=== PATIENT | male | born 1985 | race Caucasian/White ===

== ENCOUNTER 2019-12-05 09:30 | Emergency (ER) | payer OTHER, SELFPAY ==
[2019-12-05 09:37] VITALS: BP 160/85; PULSE 80; RESP 17; TEMP 36.9; O2SAT 98; BMI 25.1
--- NOTE | 2019-12-05 09:51 | ED_ITS ---
HPI - URI/Sore Throat General Chief Complaint: Upper Respiratory Symptoms Stated Complaint: THROAT/ LINGERING COUGH Time Seen by Provider: 12/05/19 09:51 Source: patient Mode of arrival: Ambulatory Limitations: no limitations History of Present Illness HPI Narrative: 34-year-old otherwise healthy gentleman presents with cough that is worsening. He is a lifelong nonsmoker with no history of asthma or upper respiratory issues. He developed a mild viral-like syndrome approximately 5 weeks ago the majority of the symptoms resolved but he continued to have a dry irritating cough in the intervening 5 weeks. Yesterday he noticed that the cough was getting worse, slightly more productive and I developing a sore throat along with increasing myalgias. Denies nausea, vomiting, chest pain, edema, abdominal pain, orthopnea, headache. Related Data Previous Rx's Medication Instructions Recorded azithromycin See Rx Instructions .ROUTE 12/05/19 .COMPLEX #6 tab benzonatate [Tessalon Perles] 100 mg PO BID-TID PRN #20 cap 12/05/19 Allergies Allergy/AdvReac Type Severity Reaction Status Date / Time No Known Drug Allergies Allergy Unverified 04/22/18 09:10 Review of Systems Review of Systems Narrative: All systems reviewed and are unremarkable except as noted in HPI and below Patient History Medical History MRSA (methicillin resistant Staphylococcus aureus) (Resolved ~2009) Surgical History History of tonsillectomy (Resolved ~1990) [place] teeth extracted (Resolved ~2002) Family History Mother Cancer Grandfather Hypertension Heart disease Grandmother Cancer Hypertension Grandfather Hypertension Heart disease Grandmother Dementia Social History Smoking Status: Never smoker Smoking Status: Never smoker alcohol intake frequency: a few times a month Alcohol type: beer Substance Use Type: does not use Exam Narrative Exam Narrative: General: Healthy appearing, in no acute distress. Able to give a complete and coherent history. Well-nourished well-developed HEENT: Moist mucous membranes, normal sclera with reactive pupils, mildly erythematous posterior pharynx without exudate, tympanic membranes are completely normal Neck: No JVD, supple Respiratory: Lungs with rhonchi and consolidated findings in the right axilla and right posterior lung orantes without any wheeze. Full and symmetrical air movement Cardiac: Regular rate and rhythm no murmurs no bruits Abdomen: Soft nontender good bowel tones, no flank pain Skin: Warm and dry, no rashes Neurologic: Grossly neurologically intact with no obvious asymmetries or abnormalities Extremities: No trauma, well perfused Psych: Cooperative, appropriate insight and affect Initial Vital Signs Initial Vital Signs: Vital Signs Temperature 98.5 F 12/05/19 09:37 Pulse Rate 80 12/05/19 09:37 Respiratory Rate 17 12/05/19 09:37 Blood Pressure 160/85 H 12/05/19 09:37 Pulse Oximetry 98 12/05/19 09:37 Course Vital Signs Vital signs: Vital Signs - 8 hr 12/05/19 09:37 Temperature 98.5 F Pulse Rate 80 Respiratory Rate 17 Blood Pressure 160/85 H Pulse Oximetry 98 [facility] - URI/Sore Throat Medical Records Attestation: I reviewed the patient's medical records. [facility] Narrative Medical decision making narrative: Five weeks of cough with increased symptoms yesterday now with clinical signs and symptoms of a developing right lower lobe pneumonia without significant hypoxia or signs of sepsis. Safe for home discharge Discharge Plan Departure Patient Disposition: Home Clinical Impression: Pneumonia Qualifiers: Pneumonia type: due to unspecified organism Laterality: right Lung location: lower lobe of lung Qualified Code(s): J18.9 - Pneumonia, unspecified organism Instructions: DI for Pneumonia -- Adult Activity Restrictions/Additional Instructions: Thank you for coming in today From your history it sounds like you had a viral syndrome with a dry persistent cough that changed yesterday. I suspect that as you are getting over the viral syndrome bacteria have taken advantage of you and that is why you now have all the clinical signs of a right lower lobe pneumonia. I am going to treat you with a course of azithromycin, antibiotics for the pneumonia. I have also given you a prescription for Tessalon Perles to suppress the cough these prescriptions have been electronically sent to [facility] in [place]. For aches, fevers and pain please try 2 [id number] ibuprofen (400 mg) and 1 Tylenol. This combination has been shown to be more effective for overall pain control with lower doses of both medications than any other combinations. If you find that you are developing worsening fevers, worsening dyspnea or have new or other concerning symptoms please return to the emergency room for further evaluation. Under normal circumstances, you would be appropriate to return to work in 1-2 days. [place] current recommendation is for coming to work when you continue to have a cough. I hope you heal quickly Prescriptions: New azithromycin 250 mg tablet See Rx Instructions .ROUTE .COMPLEX Qty: 6 RF: 0 benzonatate [Tessalon Perles] 100 mg capsule 100 mg PO BID-TID PRN (Reason: cough) Qty: 20 RF: 0 Referrals: Daily Soto ARNP [Primary Care Provider] -
== END 2019-12-05 10:13 | disposition home or self-care (01) ==
PROVIDERS: Emergency Provider Emergency Medicine; PCP Internal Medicine
DX: J18.9 Pneumonia, unspecified organism (principal)
CPT/HCPCS: 99281

== ENCOUNTER → 2021-05-09 15:00 | Outpatient (CLI) | payer OTHER, SELFPAY ==
[2021-05-09 15:55] LABS: COVID19 -Nasal RAPID Negative (Negative)
== END ==
PROVIDERS: PCP Internal Medicine; Visit Provider Specialist
DX: Z20.822 Contact with and (suspected) exposure to COVID-19 (principal)
CPT/HCPCS: 87635; C9803

== ENCOUNTER 2021-05-11 09:07 | Day surgery (SDC) | payer OTHER, SELFPAY ==
[2021-05-10 08:19] VITALS: BMI 24.7
[2021-05-11 09:33] VITALS: BP 121/77; PULSE 51; RESP 16; TEMP 36.4; O2SAT 99; BMI 24.7
[2021-05-11] MEDS: LACTATED RINGERS 1,000 ML 42 ML IV ×2 (09:43→11:59)
--- NOTE | 2021-05-11 10:20 | PM.PREOP ---
Pre-operative Note Interval Note History & Physical reviewed/Exam performed by Physician: Yes Changes to H&P: No
[2021-05-11] MEDS: CEFAZOLIN 1 GM VIAL 2 GM IV (10:40)
--- NOTE | 2021-05-11 11:13 | SUR.OPER ---
Supine on padded OR bed, head on pillow, arms secured on padded arm boards at <90 degrees abduction, legs uncrossed, safety belt at thigh, tape over blanket over lower legs.
[2021-05-11] MEDS: BUPIVACAINE 0.25% W/ EPI 30 ML VIAL INJ (11:21)
[2021-05-11] MEDS: BUPIVACAINE LIPOSOME 266 MG/20 ML VIAL INJ (11:21)
--- NOTE | 2021-05-11 12:55 | P.OP_ITS ---
Operative Date/Time/Diagnoses Date of procedure: 05/11/21 Time of procedure: 12:55 Pre-op diagnosis: 1. Bilateral varicocele Post-op diagnosis: same Procedure & Clinicians Procedure: 1. Bilateral varicocelectomy. Same procedure as scheduled: Yes Indications: 1. Bilateral varicoceles 2. Infertility Surgeon: Wan Maldonado Anesthesia Type: General and Local (1.33% Exparel) Operative Notes Findings: 1. 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 2. Moderate size right gonadal vein with adjacent smaller tributary. Closure Type: primary Specimen(s): none sent Estimated Blood Loss (mL): 2 Blood products transfused: none Procedure in detail: The patient was positioned supine was administered general anesthesia. Lower abdomen, genitalia, and groin were then prepped and draped sterile fashion. Solution of 0.5% Marcaine with epinephrine was then used to infiltrate the skin and subcutaneous tissue of both inguinal canals. A slightly oblique incision was then made over the left inguinal canal laterally. The subcutaneous fat and Arely's fascia were divided with the cautery pen. The rectus fascia was then identified was incised parallel to its fibers. The proximal spermatic cord was then carefully carefully reflected superiorly. The cord was further mobilized and brought up to the skin surface. The fibers of the spermatic cord were then carefully divided longitudinally with blunt forceps. Careful search was then undertaken for venous structures. A large solitary vein was identified. The vena community contents were readily identified and isolated as well. 2-0 Tycron sutures were then a applied proximally and distally in tied. The intervening vein was then divided sharply. Further inspection failed identify other contributory veins. The posterior cord and inguinal floor were then examined for possible communications to the inferior epigastric system. None were noted. The cord was then repositioned anatomically within the canal. The overlying rectus fascia was reapproximated using a running 0 PDS. Arely's fascial layer was then reapproximated using a running 2-0 Monocryl. Exparel local anesthetic was used to infiltrate the fascial planes and the skin. The skin was then reapproximated using an interrupted subcuticular 4-0 Monocryl. The same steps and maneuvers for performed on the right side. The only important differences that there was a moderate sized and a smaller size contributory gonadal veins. The vena communicates or simply ligated and divided. The aforementioned 2 veins were isolated in the same manner as on the left side ligated with the same sutures left side and then divided as well. Again, the cord was positioned anatomically within the right inguinal canal. The rectus fascia was closed with running 0 PDS. Arely's fascia was reapproximated using running 2-0 Monocryl. Finally, the skin was reapproximated using interrupted 4-0 Monocryl as on the left side. Now in the skin surfaces were cleaned and dried. Telfa gauze was then tailored appropriately to cover each incision and then over these an Op site dressing was applied for by occlusion. The patient was then awakened, transferred to [facility], and transferred recovery in stable condition. Complications: none Post-operative Condition: stable Disposition: PACU Plan for aftercare: Discharge home.
[2021-05-11 12:56] VITALS: BP 131/84; PULSE 60; RESP 16; TEMP 36.9; O2SAT 99
[2021-05-11 13:01] VITALS: BP 118/70; PULSE 62; RESP 16; O2SAT 99
[2021-05-11 13:06] VITALS: BP 110/67; PULSE 60; RESP 16; O2SAT 99
[2021-05-11 13:13] VITALS: BP 132/77; PULSE 66; RESP 14; O2SAT 100
[2021-05-11] MEDS: OXYCODONE/ACETAMINOPHEN 5/325 TABLET 1 TAB PO (13:31)
[2021-05-11 13:55] VITALS: BP 130/78; PULSE 68; RESP 14; TEMP 36.7; O2SAT 99
== END 2021-05-11 16:02 | disposition home or self-care (01) ==
PROVIDERS: PCP Internal Medicine; Referring Provider Specialist; Visit Provider Specialist
PROC: (CPT 55530; principal; 2021-05-11 10:15)
DX: I86.1 Scrotal varices (principal); N46.9 Male infertility, unspecified
CPT/HCPCS: 55530; C9290; J0690; J1100; J2405; J2704; J3010

== ENCOUNTER 2021-05-12 13:02 | Emergency (ER) | payer OTHER, SELFPAY ==
[2021-05-12 13:12] VITALS: BP 137/74; PULSE 57; RESP 18; TEMP 36.8; O2SAT 98; BMI 24.6
--- NOTE | 2021-05-12 13:43 | ED_ITS ---
HPI - Recheck/Abnormal Lab/Rx <Ayan Jacobson PA-C - Last Filed: 05/12/21 13:57> General Chief Complaint: Recheck/Abnormal Lab/Rx Stated Complaint: SURGERY INCISION SITES BLEEDING Time Seen by Provider: 05/12/21 13:38 Source: patient Mode of arrival: Wheelchair Limitations: no limitations History of Present Illness HPI narrative: Humberto presents today with chief complaint of having his bandages saturated from his surgery that he had yesterday. He had a bilateral variceal ectomy with Dr. Maldonado yesterday. He denies any significant pain and actually states that he is still numb from the surgical procedure. His only complaint is that his bandages have some blood on it and he was told to come in if they became saturated. Related Data Home Medications Medication Instructions Recorded Confirmed No Known Home Medications 05/01/21 05/11/21 Previous Rx's Medication Instructions Recorded oxycodone 5 mg tablet 5 mg PO Q4H PRN #30 tab 05/11/21 Allergies Allergy/AdvReac Type Severity Reaction Status Date / Time No Known Drug Allergies Allergy Verified 05/12/21 13:11 Review of Systems <Ayan Jacobson PA-C - Last Filed: 05/12/21 13:57> Review of Systems Narrative: As per HPI Patient History <Ayan Jacobson PA-C - Last Filed: 05/12/21 13:57> Medical History Bilateral varicoceles Infertility MRSA (methicillin resistant Staphylococcus aureus) (~2009) Surgical History History of tonsillectomy (~1990) [place] teeth extracted (~2002) Family History Mother Cancer Grandfather Hypertension Heart disease Grandmother Cancer Hypertension Grandfather Hypertension Heart disease Grandmother Dementia Social History marital status: number of children: 2 household members: spouse and children Smoking Status: Never smoker alcohol intake: current Smoking Status: Never smoker alcohol intake frequency: a few times a month Alcohol type: beer Substance Use Type: does not use Exam <Ayan Jacobson PA-C - Last Filed: 05/12/21 13:57> Narrative Exam Narrative: Exam Narrative: Const General: cooperative, healthy appearing, comfortable, no acute distress, well developed and well groomed Nutritional Appearance: average body habitus Orientation: alert and oriented x3 HENMT Head: normal to inspection and atraumatic Ears: hearing grossly normal bilaterally Nose: external nose normal and nares normal Face and sinus: normal facial exam Neck Neck: normal visual inspection and supple Resp Effort & Inspection: normal respiratory effort, able to speak in complete sentences, no audible wheezes, not labored, no nasal flaring and no respiratory distress Neuro General: alert, oriented x3, gait normal, tone normal and moves all extremities Cognition: normal cognition Speech: speech normal Gait: normal gait Abdomen Nondistended, nontender to palpation, bilateral incision sites with bandaging in place. Gauz underneath is saturated with blood. Bandage removed, no active bleeding or surrounding erythema. Wound edges are well approximated. Psych Appearance: grossly normal and well kempt Mental Status: mental status grossly normal Speech and Movement: speech and movement normal Mood: congruent mood Affect: normal affect Initial Vital Signs Initial Vital Signs: Vital Signs Temperature 98.2 F 05/12/21 13:12 Pulse Rate 57 L 05/12/21 13:12 Respiratory Rate 18 05/12/21 13:12 Blood Pressure 137/74 05/12/21 13:12 Pulse Oximetry 98 05/12/21 13:12 <Heather Branham MD - Last Filed: 05/13/21 09:18> Initial Vital Signs Initial Vital Signs: Vital Signs Temperature 98.2 F 05/12/21 13:12 Pulse Rate 57 L 05/12/21 13:12 Respiratory Rate 18 05/12/21 13:12 Blood Pressure 137/74 05/12/21 13:12 Pulse Oximetry 98 05/12/21 13:12 Course <Ayan Jacobson PA-C - Last Filed: 05/12/21 13:57> Vital Signs Vital signs: Vital Signs - 8 hr 05/12/21 13:12 Temperature 98.2 F Pulse Rate 57 L Respiratory Rate 18 Blood Pressure 137/74 Pulse Oximetry 98 <Heather Branham MD - Last Filed: 05/13/21 09:18> Vital Signs Vital signs: Vital Signs - 8 hr 05/12/21 13:12 Temperature 98.2 F Pulse Rate 57 L Respiratory Rate 18 Blood Pressure 137/74 Pulse Oximetry 98 MDM - Recheck/Abnormal Lab/Rx <Ayan Jacobson PA-C - Last Filed: 05/12/21 13:57> [facility] Narrative Medical decision making narrative: There is no significant evidence of ongoing hemorrhage at this time. No evidence of infection. He is nontender in the area in question. We will replace bandages and have him follow up with surgeon with strict ER return precautions. Patient verbalizes understanding and agrees to plan and has no further concerns at this time. Thank you A [id number] system was used with the dictation of this note. Please disregard any spelling or grammatical errors. Discharge Plan Departure Patient Disposition: Home Clinical Impression: Bilateral varicoceles, Visit for wound check Activity Restrictions/Additional Instructions: It was nice to meet you this afternoon. Your bandages were changed and everything looks good at this time. Please follow-up with your surgeon at your next scheduled appointment on Friday. You experience continued bleeding, increased pain, spreading redness, fever or have any additional concerns or complaints do not hesitate to return for re-evaluation. Thank you Ayan Jacobson PAC Prescriptions: No Action oxycodone 5 mg tablet 5 mg PO Q4H PRN (Reason: pain) Qty: 30 RF: 0 No Known Home Medications RF: 0 Referrals: Radha Luis DO [Primary Care Provider] - <Heather Branham MD - Last Filed: 05/13/21 09:18> Cosign ED Attending Cosignature Attestation: I was immediately available in the department for consultation throughout this patient's visit. I agree with documentation as above. Heather Branham MD
== END 2021-05-12 14:05 | disposition home or self-care (01) ==
PROVIDERS: Emergency Provider Physician Assistant; PCP Family Medicine
DX: Z48.01 Encounter for change or removal of surgical wound dressing (principal); I86.1 Scrotal varices
CPT/HCPCS: 99281